=== PATIENT | female | born 1945 | race Caucasian/White ===

== ENCOUNTER 2017-12-18 12:14 | Emergency (ER) | payer MEDICARE, OTHER ==
[2017-12-18] MEDS ORDERED: TETRACAINE HCL 0.5% OPH SOLN 2 ML OS ONE (13:59)
--- NOTE | 2017-12-18 14:53 | ER Document Report ---
ED Medical Screen (RME) - General Chief Complaint: Eye Problem Stated Complaint: LEFT EYE PAIN Time Seen by Provider: 12/18/17 13:59 TRAVEL OUTSIDE OF THE [place] IN LAST 30 DAYS: No - HPI Patient complains to provider of: Subconjunctival hemorrhage Onset: Just prior to arrival - 72-year-old female with past medical history significant for subconjunctival hemorrhage in the left eye previously who presents for evaluation of redness in the left eye which she woke up with this morning. She notes that it is painless, there was no trauma to the eye, she previously was taking Plavix but due to recurrent nosebleeds has been transitioned to aspirin. Nothing seems to make it any better. - Related Data Allergies/Adverse Reactions: fentanyl Allergy (Verified 12/18/17 18:11) Past Medical History - General Information source: Patient - Social History Chew tobacco use (# tins/day): No Frequency of alcohol use: None Drug Abuse: None - Past Medical History Cardiac Medical History: Reports: Hx Hypercholesterolemia, Hx Hypertension Renal/ Medical History: Denies: Hx Peritoneal Dialysis Past Surgical History: Reports: Hx Hysterectomy, Hx Orthopedic Surgery - rt shoulder rotator, neck surg, Hx Tonsillectomy Review of Systems - Review of Systems -: Yes All other systems reviewed and negative Physical Exam - Vital signs Vitals: Temp Pulse Resp BP Pulse Ox 97.5 F 51 L 16 165/70 H 99 12/18/17 12:25 12/18/17 12:25 12/18/17 12:25 12/18/17 12:25 12/18/17 12:25 - General General appearance: Appears well In distress: None - HEENT Head: Normocephalic Eyes: Other - Obvious subconjunctival hemorrhage in the left eye Conjunctiva: Other - Obvious subconjunctival hemorrhage to the left eye Cornea: Normal Extraocular movements intact: Yes Eyelashes: Normal Pupils: PERRL Corrective lenses worn: Yes Lids everted for exam: left: Normal Anterior chamber: Normal Fundascopic: Normal Nerve palsy: No Visual lainez normal: Yes Ears: Normal External canal: Normal Tympanic membrane: Normal Pharynx: Normal Neck: Normal - Respiratory Respiratory status: No respiratory distress Chest status: Nontender Breath sounds: Normal Chest palpation: Normal - Cardiovascular Rhythm: Regular Heart sounds: Normal auscultation Murmur: No - Abdominal Inspection: Normal Distension: No distension Tenderness: Nontender - Back Back: Normal - Extremities General upper extremity: Normal inspection, Normal ROM General lower extremity: Normal inspection, Normal ROM Course - Re-evaluation Re-evalutation: 12/18/17 21:13 This 72-year-old female presents for painless redness in the left eye which she woke up with this morning. She has had an episode in the past like this well over a month prior for which she was evaluated by her eye doctor he says nothing to worry about. Examination there is an obvious left-sided subconjunctival hemorrhage. The patient's visual acuity is spared. On slit-lamp examination there is no obvious abrasions no obvious flare and cell in the anterior chambers of either eye, funduscopic examination demonstrates no obvious retinal hemorrhage or detachment in the posterior chamber. Given the patient's well appearance otherwise we will plan for discharge with encouraged follow-up with the powerplant operator for management of her subconjunctival hemorrhage. We will continue to take aspirin as previously directed. - Vital Signs Vital signs: Temp Pulse Resp BP Pulse Ox 97.5 F 51 L 16 147/64 H 97 12/18/17 12:25 12/18/17 15:00 12/18/17 15:00 12/18/17 15:00 12/18/17 15:00 Doctor's Discharge - Discharge Clinical Impression: Subconjunctival bleed Qualifiers: Laterality: left Qualified Code(s): H11.32 - Conjunctival hemorrhage, left eye Condition: Good Disposition: HOME, SELF-CARE Instructions: Subconjunctival Hemorrhage ([facility]) Referrals: DONNA CALLAHAN NP-C [Primary Care Provider] - Follow up as needed
[2017-12-18 18:09] VITALS: BP 147/64
== END 2017-12-18 15:15 | disposition home or self-care (01) ==
LOC: ER 12:14
DX: H11.32 Conjunctival hemorrhage, left eye (principal); I10 Essential (primary) hypertension; Z79.82 Long term (current) use of aspirin; Z88.5 Allergy status to narcotic agent
CPT/HCPCS: 99283

== ENCOUNTER → 2018-06-06 | Outpatient (CLI) | payer MEDICARE, OTHER ==
--- NOTE | 2018-06-06 13:08 | WOMENS IMAGING REPORT ---
EXAM DESCRIPTION: 3D SCREENING MAMMO BILAT COMPLETED DATE/TIME: 06/06/2018 10:28 am REASON FOR STUDY: ROUTINE BILATERAL SCREENING;Z12.31 Z12.31 ENCNTR SCREEN MAMMOGRAM FOR MALIGNANT N EOPLASM OF ALEJANDRA COMPARISON: 07/05/2016 TECHNIQUE: Standard craniocaudal and mediolateral oblique views of each breast recorded using digita l acquisition and breast tomosynthesis. LIMITATIONS: None. FINDINGS: No masses, calcifications or architectural distortion. No areas of suspicion. Read with the assistance of CAD. .[facility] - R2 Cenova Version 1.3 .[facility] - R2 Cenova Version 2.1 .[facility] - R2 Cenova Version 2.4 .[facility] [place] R2 Cenova Version 2.4 .[facility] - R2 Sawmill Hand Version 9.2 IMPRESSION: NORMAL MAMMOGRAM. BIRADS 1. BREAST DENSITY: b. There are scattered areas of fibroglandular density. BIRAD: 1 NEGATIVE RECOMMENDATION: ROUTINE SCREENING COMMENT: The patient has been notified of the results by letter per SA requirements. Additional no tification policies are in place for contacting patient with suspicious or incomplete findings. Quality ID #[id number]: The [employer] recommends an annual screening mammogram for women aged 40 years or over. This facility utilizes a reminder system to ensure that all patients receive reminder letters, and/or direct phone calls for appointments. This includes reminders for routine scr eening mammograms, diagnostic mammograms, or other Breast Imaging Interventions when appropriate. Th is patient will be placed in the appropriate reminder system. The [employer] (ACR) has developed recommendations for screening MRI of the breast s in certain patient populations, to be used in conjunction with mammography. Breast MRI surveillanc e may be appropriate for women with more than 20% lifetime risk of developing breast cancer as deter mined by genetic testing, significant family history of the disease, or history of mantle radiation f or Hodgkins Disease. ACR Practice Guidelines 2008. DBT Technology DBT is a type of tomographic mammography. With conventional mammography, overlapping breast tissue ma y make lesions difficult to detect, even with good compression. DBT uses an x-ray tube that rotates a round the breast, taking images at different angles. These images are then combined to create thin sl ices of the breast that the radiologist can view as a 3D reconstruction. The [employer] unit can perform full-field digital mammograms (2D imaging); or DBT (3D imaging); or both, in a combination mode that quickly performs both the mammogram and the tomosynthesis scan while the breast is still compressed. PQRS 6045F: Fluoroscopic imaging is not utilized for breast tomosynthesis. TECHNICAL DOCUMENTATION: FINDING NUMBER: (1) ASSESSMENT: (1) JOB ID: [id number] [place]- All Rights Reserved Reading location - IP/workstation name: [email or web address]
== END ==
LOC: WI 10:00
PROVIDERS: ATTEND Internal Medicine Geriatric Medicine
DX: Z12.31 Encounter for screening mammogram for malignant neoplasm of breast (principal)
CPT/HCPCS: 77063; 77067

== ENCOUNTER 2019-12-28 18:20 | Emergency (ER) | payer MEDICARE, OTHER ==
--- NOTE | 2019-12-28 19:50 | ER Document Report ---
ED Medical Screen (RME) - General Chief Complaint: Cough Stated Complaint: NAUSEA/WEAKNESS/COUGHING UP WORMS Time Seen by Provider: 12/28/19 19:46 Primary Care Provider: RENÉ AZAR MD [Primary Care Provider] - Follow up as needed Mode of Arrival: Ambulatory Information source: Patient Notes: 74-year-old female presented to ED for complaint of shortness of breath. She states she has parasites coming out of her nose or mouth or rectum. She states she has been very short of breath because of these parasites. She states she did have a fever a couple weeks ago but now she does not have fever. She states she has been to multiple doctors in the area and nobody knows what she is talking about. She has samples of her "parasites on a plate on an apple and in a another dish. She states she also has pictures of these parasites. I do not see any obvious parasites in any of these areas. She states she thinks is either ringworm hookworm or roundworm. None of the sample she showed me look like any of the above. Patient is very aggravated that I do not know what these bugs are. I told her that I would get her seen by another provider. I have greeted and performed a rapid initial assessment of this patient. A comprehensive ED assessment and evaluation of the patient, analysis of test results and completion of medical decision making process will be conducted by an additional ED providers. TRAVEL OUTSIDE OF THE [place] IN LAST 30 DAYS: No - Related Data Allergies/Adverse Reactions: fentanyl Allergy (Verified 12/18/17 18:11) Past Medical History - Past Medical History Cardiac Medical History: Reports: Hx Hypercholesterolemia, Hx Hypertension Renal/ Medical History: Denies: Hx Peritoneal Dialysis Past Surgical History: Reports: Hx Hysterectomy, Hx Orthopedic Surgery - rt shoulder rotator, neck surg, Hx Tonsillectomy Doctor's Discharge - Discharge Referrals: RENÉ AZAR MD [Primary Care Provider] - Follow up as needed
[2019-12-28 20:48] LABS: ABSOLUTE BASOPHILS # (AUTO) 0.1 10^3/uL (0.0-0.2); ABSOLUTE EOSINOPHILS # (AUTO) 0.2 10^3/uL (0.0-0.6); ABSOLUTE LYMPHOCYTES (AUTO) 3.8 10^3/uL (0.5-4.7); ABSOLUTE MONOCYTES (AUTO) 0.9 10^3/uL (0.1-1.4); ABSOLUTE NEUT (AUTO) 6.6 10^3/uL (1.7-8.2); BASOPHILS % (AUTO) 0.7 % (0-2); EOSINOPHILS % (AUTO) 1.5 % (0-6); HEMATOCRIT 39.8 % (36.0-47.0); HEMOGLOBIN 13.1 g/dL (12.0-15.5); LYMPHOCYTES % (AUTO) 32.6 % (13-45); MEAN CORPUSCULAR HEMOGLOBIN 29.3 pg (27.0-33.4); MEAN CORPUSCULAR HGB CONC 32.8 g/dL (32.0-36.0); MEAN CORPUSCULAR VOLUME 89 fl (80-97); MONOCYTES % (AUTO) 7.9 % (3-13); PLATELET COUNT 175 10^3/uL (150-450); RED BLOOD COUNT 4.46 10^6/uL (3.72-5.28); RED CELL DISTRIBUTION WIDTH 16.1 % (11.5-14.0); SEGMENTED NEUTROPHILS % (AUTO) 57.3 % (42-78); TOTAL CELLS COUNTED % (AUTO) 100 %; WHITE BLOOD COUNT 11.6 10^3/uL (4.0-10.5)
[2019-12-28 20:55] LABS: APPEARANCE,URINE CLEAR; BILIRUBIN,URINE NEGATIVE (NEGATIVE); COLOR,URINE STRAW; GLUCOSE, URINE NEGATIVE (NEGATIVE); KETONES,URINE NEGATIVE (NEGATIVE); LEUKOCYTE ESTERASE,URINE TRACE (NEGATIVE); NITRITE,URINE NEGATIVE (NEGATIVE); PROTEIN,URINE NEGATIVE (NEGATIVE); URINE SPECIFIC GRAVITY 1.005; UROBILINOGEN,URINE NEGATIVE mg/dL (<2.0)
[2019-12-28 21:07] LABS: ALBUMIN 3.9 g/dL (3.5-5.0); ALKALINE PHOSPHATASE 65 U/L (38-126); ANION GAP 7 (5-19); ASPARTATE AMINO TRANSFERASE 33 U/L (14-36); BILIRUBIN,DIRECT 0.3 mg/dL (0.0-0.4); BILIRUBIN,TOTAL 0.5 mg/dL (0.2-1.3); BLOOD UREA NITROGEN 26 mg/dL (7-20); CALCIUM 9.3 mg/dL (8.4-10.2); CARBON DIOXIDE 30 mmol/L (22-30); CHLORIDE 104 mmol/L (98-107); GLUCOSE 92 mg/dL (75-110); POTASSIUM 4.1 mmol/L (3.6-5.0); TOTAL PROTEIN 6.4 g/dL (6.3-8.2)
--- NOTE | 2019-12-28 23:41 | ER Document Report ---
ED General - General Chief Complaint: Shortness Of Breath Stated Complaint: NAUSEA/WEAKNESS/COUGHING UP WORMS Time Seen by Provider: 12/28/19 19:46 Primary Care Provider: RENÉ AZAR MD [Primary Care Provider] - Follow up as needed Mode of Arrival: Ambulatory TRAVEL OUTSIDE OF THE [place] IN LAST 30 DAYS: No - HPI Context: This is a 74-year-old female who is presenting to the emergency department complaining of shortness of breath and generalized weakness. Patient states that she has parasites coming out of her nose mouth and rectum. She states that she is short of breath and weak because of these parasites. Patient states she had a fever couple weeks ago which has since abated. Currently she is being seen by other providers and has had stool test sent off for evaluation of parasites. Patient denies any recent travel. Patient denies cough, myalgias, loss of sense of taste or sense of smell. Patient states she is also noticed swelling in her lower extremities bilaterally during the day that improves overnight. Patient is showing this provider pictures of her stool and sputum as well as a half an apple and she brought in with her that she is stating has evidence of parasites in it. Patient does not know how she might of been exposed to this pathology. Patient states she was expecting a call from 1 of her providers today about the results of some testing but never received a call. Patient states "at this point I just want to know what they are and I want to get them out of me" Associated symptoms: Other - See HPI Exacerbated by: Other - Nothing Relieved by: Other - Nothing Similar symptoms previously: No Recently seen / treated by doctor: Yes - Related Data Allergies/Adverse Reactions: fentanyl Allergy (Verified 12/18/17 18:11) Past Medical History - General Information source: Patient - Social History Smoking Status: Never Smoker Chew tobacco use (# tins/day): No Frequency of alcohol use: None Drug Abuse: None Family History: Reviewed & Not Pertinent - Past Medical History Cardiac Medical History: Reports: Hx Hypercholesterolemia, Hx Hypertension Renal/ Medical History: Denies: Hx Peritoneal Dialysis Past Surgical History: Reports: Hx Hysterectomy, Hx Orthopedic Surgery - rt shoulder rotator, neck surg, Hx Tonsillectomy Review of Systems - Review of Systems Constitutional: Weakness EENT: See HPI Cardiovascular: denies: Chest pain Respiratory: Short of breath Gastrointestinal: No symptoms reported Genitourinary: No symptoms reported Female Genitourinary: No symptoms reported Musculoskeletal: No symptoms reported Skin: No symptoms reported Hematologic/Lymphatic: No symptoms reported Neurological/Psychological: No symptoms reported -: Yes All other systems reviewed and negative Physical Exam - Vital signs Vitals: Temp Pulse Resp BP Pulse Ox 98.4 F 97 18 119/85 99 12/28/19 20:08 12/28/19 20:08 12/28/19 20:08 12/28/19 20:08 12/28/19 20:08 - Notes Notes: CONSTITUTIONAL [Vital signs reviewed, Patient appears comfortable, Alert and oriented X 3, Normal stature.] HEAD [Atraumatic, Normocephalic.] EYES [Eyes are normal to inspection, No discharge from eyes, Extraocular muscles intact, Sclera are normal, Conjunctiva are normal.] ENT [Ears normal to inspection, Nose examination normal, Posterior pharynx normal, Mouth normal to inspection.] NECK [Normal ROM, No jugular venous distention, No meningeal signs, no carotid bruit.] RESPIRATORY CHEST [Chest is nontender, Breath sounds normal, No respiratory distress.] CARDIOVASCULAR [RRR, No murmurs, Normal S1 S2, No rub, No gallop.] ABDOMEN [Abdomen is nontender, No pulsatile masses, No other masses, Bowel sounds normal, No distension, No peritoneal signs, No hernias.] BACK [There is no CVA Tenderness, There is no tenderness to palpation, Normal inspection.] UPPER EXTREMITY [Inspection normal, No cyanosis, No clubbing, No edema, 2+ radial pulses.] LOWER EXTREMITY [Inspection normal, No cyanosis, No clubbing, No edema, No calf tenderness, 2+ femoral pulses.] NEURO [No focal motor deficits, No focal sensory deficits, Speech normal.] SKIN [Skin is warm, Skin is dry, Skin is normal color.] LYMPHATIC [No adenopathy in neck.] PSYCHIATRIC [Normal affect. ] Course - Re-evaluation Re-evalutation: 12/29/19 01:28 Results of ED MSE discussed with all questions were answered prior to discharge. Emergency signs and symptoms, reasons to return to the emergency department discussed with patient. - Vital Signs Vital signs: Temp Pulse Resp BP Pulse Ox 98.4 F 97 18 119/85 99 12/28/19 20:11 12/28/19 20:11 12/28/19 20:11 12/28/19 20:11 12/28/19 20:11 - Laboratory Result Diagrams: 12/28/19 20:35 12/28/19 20:35 Laboratory results interpreted by me: 12/28/19 12/28/19 12/28/19 20:35 20:35 20:35 WBC 11.6 H RDW 16.1 H BUN 26 H Est GFR (MDRD) Non-Af 50 L ALT 48 H Urine Blood MODERATE H Ur Leukocyte Esterase TRACE H - Diagnostic Test Radiology reviewed: Reports reviewed Discharge - Discharge Clinical Impression: Malaise and fatigue Dyspnea Qualifiers: Dyspnea type: unspecified Qualified Code(s): R06.00 - Dyspnea, unspecified Condition: Stable Disposition: HOME, SELF-CARE Additional Instructions: Return to the Emergency Department without delay if any worse. HOME CARE INSTRUCTIONS & INFORMATION: Thank you for choosing us for your medical needs. We hope you're satisfied with the care you received. After you leave, you must properly care for your problem and, at the same time, observe its progress. Any condition can change. Some illnesses can change rapidly over hours or days. If your condition worsens, return to the Emergency Department or see your physician promptly. ABOUT YOUR X-RAYS AND EKG'S: If you had an EKG or X-rays taken, they have been read by the Emergency Physician. The X-rays and EKG's will also be read by a Radiologist or Viscose Department Worker within 24 hours. If discrepancies are noted, you will be notified by telephone. Please be certain the ED has a correct telephone number & address where you can be reached. Also, realize that some fractures or abnormalities do not show up on initial X-rays. If your symptoms continue, see your physician. ABOUT YOUR LABORATORY TEST: If you had laboratory tests, the results have been reviewed by the Emergency Physician. Some test results (for example cultures) may not be available for several days. You will be contacted if any test result shows you need additional treatment. Please be certain the ED has a correct telephone number and address where you can be reached. ABOUT YOUR MEDICATIONS: You will receive instructions on how to take your medicine on the prescription label you receive. Additional information may be provided by the Pharmacy. If you have questions afterwards, call the ED for clarification or further instructions. Some prescribed medications may cause drowsiness. Do not perform tasks such as driving a car or operating machinery without consulting your Pharmacist. If you feel you need a refill of pain medication, your condition will need re-evaluation. Please do not call for a refill of any medication. ABOUT YOUR SIGNATURE: Signature of this document acknowledges to followin. Understanding that you received emergency treatment and that you may be released before al medical problems are known or treated. Please be certain the ED has a correct phone number & address where you can be reached. 2. Acknowledgement that you will arrange for follow-up care as recommended. 3. Authorization for the Emergency Physician to provide information to your follow-up Physician in order to maximize your care. AT ANY TIME, IF YOUR SYMPTOMS CHANGE SIGNIFICANTLY OR WORSEN OR YOU DEVELOP NEW SYMPTOMS, RETURN TO THE EMERGENCY DEPARTMENT IMMEDIATELY FOR RE-EVALUATION. OUR GOAL IS TO PROVIDE EXCELLENT MEDICAL CARE! WE HOPE THAT WE HAVE MET YOUR EXPECTATIONS DURING YOUR EMERGENCY DEPARTMENT VISIT AND THAT YOU FEEL YOU HAVE RECEIVED EXCELLENT CARE! Referrals: RENÉ AZAR MD [Primary Care Provider] - Follow up as needed
--- NOTE | 2019-12-29 00:23 | RADIOLOGY REPORT (SQ) ---
EXAM DESCRIPTION: XR CHEST 1 VIEW COMPLETED DATE/TME: 12/28/2019 23:28 CLINICAL HISTORY: dyspnea COMPARISON: None. FINDINGS: Single frontal radiograph view of the chest. Cardiomediastinal silhouette: Cardiomegaly. Lungs: No consolidation, pneumothorax, or pleural effusion. Hyperinflation. Bones: No acute osseous abnormality. Partial visualization of anterior cervical spine fixation. Postoperative change of the right humeral head. Upper abdomen: No abnormality identified. IMPRESSION: 1. No acute pneumonic process. 2. Cardiomegaly. 3. Hyperinflation may indicate obstructive lung disease.
[2019-12-29 01:43] VITALS: BP 137/77
[2019-12-29 14:54] LABS: BLOOD PARASITE THICK SMEAR NO ORGANISMS SEEN
[2020-01-01 15:30] LABS: BLOOD PARASITE SCREEN RESULT NO ORGANISMS SEEN
[2020-01-01 15:33] LABS: PATH REVIEW PATHOLOGIST REVIEWED
== END 2019-12-29 01:42 | disposition home or self-care (01) ==
LOC: ER 18:20
DX: R06.02 Shortness of breath (principal); R53.1 Weakness; R53.83 Other fatigue; R53.81 Other malaise; I11.9 Hypertensive heart disease without heart failure; Z88.6 Allergy status to analgesic agent; Z88.5 Allergy status to narcotic agent
CPT/HCPCS: 36415; 71045; 80053; 81001; 85025; 87015; 87207; 99284

== ENCOUNTER 2019-12-29 08:42 | Inpatient (IN) | payer MEDICARE, OTHER ==
--- NOTE | 2019-12-29 10:42 | ER Document Report ---
ED General - General Chief Complaint: Abdominal Problem Stated Complaint: BREATHING PROBLEM Time Seen by Provider: 12/29/19 10:14 Primary Care Provider: RENÉ AZAR MD [Primary Care Provider] - Follow up as needed TRAVEL OUTSIDE OF THE [place] IN LAST 30 DAYS: No - HPI Notes: Chief complaint: "I have worms" History of present illness: 74-year-old female reports seeing worms in her stool starting on 07 December. Since then she has had generalized malaise, fatigue and about an 8 pound weight loss. She says also she has been intermittently short of breath and has seen worms crawling out of her nose. Patient previously has been under the care of Dr. Fuentes for hypertension. She is otherwise been in good general health. She states she tried to make a appointment with Dr. Mg unsuccessfully and subsequently decided to switch over to Dr. Azar. She has been seen twice in the office there by 1 of the physicians assistants and they told her that they could not find anything. Patient subsequently spoke with her pharmacist about the issue and was told she should come to the emergency department. She came in was seen last night by Dr. Callum Goldberg. I have reviewed his note. He apparently sent a specimen of blood for evaluation of parasites and the report at this time indicates this remains on pending status so I presume this is a send out test. Patient says she was not given any medication last night and she appears to be disappointed in the evaluation and therefore came back in today. She says she is been intermittently short of breath. Patient denies any travel outside the area. She does not consume raw or rare meats. She says she has 2 dogs as pets. She occasionally walks outside barefooted in her yard. Patient is a former smoker having quit cigarettes over 5 years ago. She denies consumption of alcohol. She reports an allergy to fentanyl. She is taking medication for hypertension. She says she is on 2 different medications. She did not bring either with her and does not know milligrams strengths. 1 of the medications is Bystolic and she cannot recall the name of the other medication. She denies taking any other type of medication. W she specifically denies any known history of Diabetes mellitus. - Related Data Allergies/Adverse Reactions: fentanyl Allergy (Verified 12/18/17 18:11) Past Medical History - General Information source: Patient, [facility] Records - Social History Smoking Status: Former Smoker Chew tobacco use (# tins/day): No Frequency of alcohol use: None Drug Abuse: None Family History: Reviewed & Not Pertinent Patient has homicidal ideation: No - Past Medical History Cardiac Medical History: Reports: Hx Hypercholesterolemia, Hx Hypertension Denies: Hx Atrial Fibrillation Endocrine Medical History: Denies: Hx Diabetes Mellitus Type 1, Hx Diabetes Aline litus Type 2, Hx Hyperthyroidism, Hx Hypothyroidism Renal/ Medical History: Denies: Hx Peritoneal Dialysis Musculoskeletal Medical History: Reports Hx Fibromyalgia Psychiatric Medical History: Reports: None Past Surgical History: Reports: Hx Hysterectomy, Hx Orthopedic Surgery - rt shoulder rotator, neck surg, Hx Tonsillectomy Review of Systems - Review of Systems Notes: Constitutional: As per HPI. No fever.. HENT: Negative for sore throat. Eyes: Negative for visual changes. Cardiovascular: Negative for chest pain. Respiratory: As per HPI. Gastrointestinal: As per HPI . Genitourinary: Negative for dysuria. Musculoskeletal: Negative for back pain. Skin: Negative for rash. Neurological: Negative for headaches, focal weakness or numbness. 10 point ROS negative except as marked above and in HPI. Physical Exam - Vital signs Vitals: Temp 98.6 F 12/29/19 08:42 - Notes Notes: GENERAL: Slender female patient of approximately stated age appearing with flat affect and appearing mildly anxious. SKIN: Good turgor no rashes. HEAD: Normocephalic atraumatic. EYES: PERRLA. EOMI. Conjunctivae and sclerae clear. EARS: CANALS AND TMS CLEAR. NOSE: CLEAR. MOUTH: Moist mucosa. Good dentition. No stridor or edema. No drooling. NECK: Supple. No masses or thyromegaly. No adenopathy. Carotids 2+ without bruits. No JVD. BACK: Symmetrical without tenderness. CHEST: Respirations unlabored. Breath sounds clear and symmetrical. HEART: Tachycardic irregularly irregular rhythm. No murmur gallop or rub. ABDOMEN: Soft nontender without masses, organomegaly or rebound. Bowel sounds normally active. No bruits. GENITALIA: Deferred. EXTREMITIES: Moderate degenerative changes intra-phalangeal joints of both hands. No edema. No calf tenderness. Cap refill less than 1.5 seconds. Dorsa lis pedis and posterior tibial pulses 3+ and symmetrical. NEUROLOGICAL: GCS 15. Alert and oriented x3. Normal gait. Fluent speech. Cranial nerves II through XII intact. Sensorimotor and cerebellar normal. Normal tone. PSYCHIATRIC: Appropriate affect. Course - Re-evaluation Re-evalutation: 12/29/19 12:39 Patient presented with new onset atrial fibrillation with rapid ventricular response. This was controlled with IV bolus and drip infusion diltiazem. She is in persistent atrial fib but her rate is now down to 77. She has no chest pain. Troponin is normal. Chemistry profile and CBC are unremarkable. Findings have been reviewed with her primary care physician Dr. Azar who will admit to [facility]. - Vital Signs Vital signs: Temp Pulse Resp BP Pulse Ox 97.7 F 117 H 12 117/98 H 97 12/29/19 09:02 12/29/19 09:02 12/29/19 12:04 12/29/19 12:04 12/29/19 12:04 - Laboratory Result Diagrams: 12/29/19 11:30 12/29/19 11:30 Laboratory results interpreted by me: 12/29/19 12/29/19 11:30 11:30 RDW 16.1 H BUN 22 H Est GFR (MDRD) Non-Af 56 L Magnesium 2.4 H ALT 49 H Total Protein 6.1 L - EKG Interpretation by Me Additional EKG results interpreted by me: 12/29/19 10:47 Twelve-lead EKG from 1041 hrs. reviewed contemporaneously by me. Rhythm: Atrial fibrillation Rate: 130 Intervals normal. QRS axis +22 degrees normal. No acute ST/T wave changes. No prior EKG for comparison. Indication for study: Tachycardia. Interpretation: Abnormal tracing showing atrial fibrillation with rapid ventricular response. Critical Care Note - Critical Care Note Total time excluding time spent on procedures (mins): 35 - Atrial fibrillation with rapid ventricular response. Diltiazem IV bolus and drip initiated. Discharge - Discharge Clinical Impression: New onset atrial fibrillation Condition: Good Disposition: ADMITTED INPATIENT Unit Admitted: [facility] Referrals: RENÉ AZAR MD [Primary Care Provider] - Follow up as needed
[2019-12-29] MEDS ORDERED: DILTIAZEM HCL INJ 25 MG/5 ML VIAL IV ONE (10:48)
[2019-12-29] MEDS ORDERED: DILTIAZEM HCL/D5W 125 MG/125 ML RTUINJ IV PRN (10:49)
[2019-12-29 11:44] LABS: ABSOLUTE EOSINOPHILS # (AUTO) 0.1 10^3/uL (0.0-0.6); ABSOLUTE LYMPHOCYTES (AUTO) 2.9 10^3/uL (0.5-4.7); ABSOLUTE MONOCYTES (AUTO) 0.7 10^3/uL (0.1-1.4); ABSOLUTE NEUT (AUTO) 4.2 10^3/uL (1.7-8.2); BASOPHILS % (AUTO) 0.4 % (0-2); EOSINOPHILS % (AUTO) 1.6 % (0-6); HEMATOCRIT 39.9 % (36.0-47.0); HEMOGLOBIN 13.1 g/dL (12.0-15.5); LYMPHOCYTES % (AUTO) 36.8 % (13-45); MEAN CORPUSCULAR HEMOGLOBIN 29.2 pg (27.0-33.4); MEAN CORPUSCULAR HGB CONC 32.9 g/dL (32.0-36.0); MEAN CORPUSCULAR VOLUME 89 fl (80-97); MONOCYTES % (AUTO) 8.6 % (3-13); PLATELET COUNT 166 10^3/uL (150-450); RED CELL DISTRIBUTION WIDTH 16.1 % (11.5-14.0); SEGMENTED NEUTROPHILS % (AUTO) 52.6 % (42-78); TOTAL CELLS COUNTED % (AUTO) 100 %
[2019-12-29 12:01] LABS: ALBUMIN 3.8 g/dL (3.5-5.0); ALKALINE PHOSPHATASE 59 U/L (38-126); ANION GAP 8 (5-19); ASPARTATE AMINO TRANSFERASE 34 U/L (14-36); BILIRUBIN,DIRECT 0.2 mg/dL (0.0-0.4); BILIRUBIN,TOTAL 0.9 mg/dL (0.2-1.3); BLOOD UREA NITROGEN 22 mg/dL (7-20); CALCIUM 8.9 mg/dL (8.4-10.2); CARBON DIOXIDE 28 mmol/L (22-30); CHLORIDE 103 mmol/L (98-107); GLUCOSE 83 mg/dL (75-110); POTASSIUM 3.8 mmol/L (3.6-5.0); TOTAL PROTEIN 6.1 g/dL (6.3-8.2)
[2019-12-29 12:03] LABS: INTERNATIONAL RATION (INR) 0.91; PROTHROMBIN TIME 12.5 SEC (11.4-15.4)
[2019-12-29 12:04] LABS: PARTIAL THROMBOPLASTIN TIME 28.9 SEC (23.5-35.8)
--- NOTE | 2019-12-29 13:23 | EKG REPORT ---
SEVERITY:- ABNORMAL ECG - ATRIAL FIBRILLATION, V-RATE 71-179 : Confirmed by: Ajay Pena MD 29-Dec-2019 13:23:05
[2019-12-29] MEDS: DILTIAZEM HCL/D5W 125 MG/125 ML RTUINJ IV PRN (18:40)
[2019-12-29] MEDS ORDERED: OXYCODONE HCL SR 10 MG TABLET PO PRN (18:40)
[2019-12-29 19:20] LABS: FREE T3 3.46 pg/mL (2.77-5.27); FREE T4 (FREE THYROXINE) 1.64 ng/dL (0.78-2.19)
[2019-12-29] MEDS: APIXABAN 5 MG TABLET PO SCH (20:26)
[2019-12-29] MEDS: NORMAL SALINE 1000 ML 1,000 ML IV PRN (20:27)
--- NOTE | 2019-12-29 21:43 | PDOC H&P ---
History of Present Illness Admission Date/PCP: 12/29/19 13:10 [facility] Patient complains of: Difficulty with breathing, Abdominal Pain History of Present Illness: SRAVAN CHONG is a 74 year old female patient known to my practice who presented to the ED second time in last 48 hours with complain about worm in her stool and coming out of her nose. She was seen in the office for similar complain recently and her workup is pending results from [facility] laboratory. She reported persist of her observation and based on the suggestion of her pharmacist reported to the ED for further evaluation. She denied any recent travel or intimate contact with individual that may be infested with worm. She admitted to keeping two dogs at home as pets, walk barefoot at home and in her yard. She denied consumption of unusual meat or food products. In the course of her assessment, she reported intermittent shortness of breath since onset of her worm infestation observation in November,. She was found to be in atrial fibrillation with rapid ventricular response rate. She denied any associated chest pain or dizziness. She admitted to intermittent palpitation. She denied any similar problem in the past or any history of thyroid problem. Her morbidities are as listed below. She was advised hospitalization for further evaluation and management. Past Medical History Cardiac Medical History: Reports: Hyperlipidema, Hypertension Denies: Atrial Fibrillation Endocrine Medical History: Denies: Diabetes Mellitus Type 1, Diabetes Mellitus Type 2, Hyperthyroidism, Hypothyroidism Musculoskeltal Medical History: Reports: Fibromyalgia Psychiatric Medical History: Reports: None Denies: Depression Past Surgical History Past Surgical History: Reports: Hysterectomy, Orthopedic Surgery - rt shoulder rotator, neck surg, Tonsillectomy Social History Smoking Status: Former Smoker Electronic Cigarette use?: No Frequency of Alcohol Use: None Hx Recreational Drug Use: No Drugs: None Hx Prescription Drug Abuse: No - Advance Directive Resuscitation Status: Full Code Family History Family History: Reviewed & Not Pertinent Parental Family History Reviewed: Yes Children Family History Reviewed: Yes Sibling(s) Family History Reviewed.: Yes Medication/Allergy Home Medications: Alprazolam 1 mg PO TIDP PRN 12/29/19 Levofloxacin [Levaquin 250 mg Tablet] 250 mg PO DAILY MDD FILLED 12/24 FOR 3 DAY SUPPLY 12/29/19 Montelukast Sodium [Singulair 10 mg Tablet] 10 mg PO QHS 12/29/19 Oxycodone HCl [Oxy-Ir 5 mg Tablet] 5 mg PO Q6HP PRN 12/29/19 Oxycodone HCl [Oxy-Ir 5 mg Tablet] 10 mg PO Q6HP PRN 12/29/19 Oxycodone HCl [Oxycontin Sr 10 mg Tablet] 10 mg PO Q12HP PRN 12/29/19 Prednisone [Deltasone 20 mg Tablet] 20 mg PO ASDIR PRN MDD FILLED 12/17 FOR 12 DAY SUPPLY 12/29/19 Allergies/Adverse Reactions: fentanyl Allergy (Verified 12/18/17 18:11) Review of Systems Constitutional: PRESENT: weight loss - reported about 8 lbs since November, onset of her worm infestation observation. ABSENT: chills, fever(s), headache(s), weight gain Eyes: ABSENT: visual disturbances Ears: ABSENT: hearing changes Cardiovascular: PRESENT: dyspnea on exertion - intermittent, palpitations - intermittent. ABSENT: chest pain, edema, orthropnea Respiratory: PRESENT: dyspnea - intermittent. ABSENT: cough, hemoptysis Gastrointestinal: ABSENT: abdominal pain, constipation, diarrhea, hematemesis, hematochezia, nausea, vomiting Genitourinary: ABSENT: dysuria, hematuria Musculoskeletal: ABSENT: joint swelling Integumentary: ABSENT: rash, wounds Neurological: ABSENT: abnormal gait, abnormal speech, confusion, dizziness, focal weakness, syncope Psychiatric: ABSENT: anxiety, depression, homidical ideation, suicidal ideation Endocrine: ABSENT: cold intolerance, heat intolerance, menstrual abnormalities, polydipsia, polyuria Hematologic/Lymphatic: ABSENT: easy bleeding, easy bruising, lymphadenopathy Physical Exam Vital Signs: Temp Pulse Resp BP Pulse Ox 97.5 F 97 16 126/87 H 95 12/29/19 15:38 12/29/19 18:00 12/29/19 15:38 12/29/19 18:00 12/29/19 15:38 Intake & Output 12/28/19 12/29/19 12/30/19 06:59 06:59 06:59 Weight 70 kg General appearance: PRESENT: no acute distress Head exam: PRESENT: atraumatic, normocephalic Eye exam: PRESENT: conjunctiva pink, EOMI, PERRLA. ABSENT: scleral icterus Ear exam: PRESENT: normal external ear exam Mouth exam: PRESENT: moist, tongue midline Neck exam: PRESENT: full ROM. ABSENT: carotid bruit, JVD, lymphadenopathy, thyromegaly Respiratory exam: PRESENT: clear to auscultation polo Cardiovascular exam: PRESENT: irregular rhythm, +S1, +S2, tachycardia. ABSENT: diastolic murmur, rubs, systolic murmur Pulses: PRESENT: normal dorsalis pedis pul, +2 pedal pulses bilateral Vascular exam: PRESENT: normal capillary refill GI/Abdominal exam: PRESENT: normal bowel sounds, soft. ABSENT: distended, guarding, mass, organolmegaly, rebound, tenderness Rectal exam: PRESENT: deferred Extremities exam: ABSENT: pedal edema Musculoskeletal exam: PRESENT: deformity - related to multiple joints involvement with arthritis Neurological exam: PRESENT: alert, awake, oriented to person, oriented to place, oriented to time, oriented to situation, CN II-XII grossly intact. ABSENT: motor sensory deficit Psychiatric exam: PRESENT: appropriate affect, normal mood. ABSENT: homicidal ideation, suicidal ideation Skin exam: PRESENT: dry, warm. ABSENT: cyanosis, rash Results Laboratory Results: 12/29/19 11:30 12/29/19 11:30 12/29/19 12/29/19 12/29/19 11:30 11:30 11:30 WBC 8.0 RBC 4.50 Hgb 13.1 Hct 39.9 MCV 89 MCH 29.2 MCHC 32.9 RDW 16.1 H Plt Count 166 Seg Neutrophils % 52.6 Sodium 139.0 Potassium 3.8 Chloride 103 Carbon Dioxide 28 Anion Gap 8 BUN 22 H Creatinine 0.97 Est GFR ( Amer) > 60 Glucose 83 Calcium 8.9 Magnesium 2.4 H Total Bilirubin 0.9 AST 34 Alkaline Phosphatase 59 Total Protein 6.1 L Albumin 3.8 TSH 0.28 L 12/29/19 12/29/19 11:30 11:30 Troponin I < 0.012 NT-Pro-B Natriuret Pep 2180 H Assessment & Plan - Diagnosis (1) New onset atrial fibrillation Is this a current diagnosis for this admission?: Yes Plan: See admitting attending physician orders for details about care plan. (2) Worm infestation Is this a current diagnosis for this admission?: Yes Plan: See admitting attending physician orders for details about care plan. (3) HTN (hypertension) Qualifiers: Hypertension type: essential hypertension Qualified Code(s): I10 - Essential (primary) hypertension Is this a current diagnosis for this admission?: Yes Plan: See admitting attending physician orders for details about care plan. (4) HLD (hyperlipidemia) Qualifiers: Hyperlipidemia type: unspecified Qualified Code(s): E78.5 - Hyperlipidemia, unspecified Is this a current diagnosis for this admission?: Yes Plan: See admitting attending physician orders for details about care plan. (5) Fibromyalgia Is this a current diagnosis for this admission?: Yes Plan: See admitting attending physician orders for details about care plan. (6) Anxiety Is this a current diagnosis for this admission?: Yes Plan: See admitting attending physician orders for details about care plan. (7) Chronic pain syndrome Is this a current diagnosis for this admission?: Yes Plan: See admitting attending physician orders for details about care plan. (8) Chronic prescription opiate use Is this a current diagnosis for this admission?: Yes Plan: See admitting attending physician orders for details about care plan. - Time Time Spent: 50 to 70 Minutes Medications reviewed and adjusted accordingly: Yes Anticipated Discharge Disposition: Home, Self Care Anticipated Discharge Timeframe: within 72 hours - Inpatient Certification Based on my medical assessment, after consideration of the patient's comorbi dities, presenting symptoms, or acuity I expect that the services needed warrant INPATIENT care.: Yes I certify that my determination is in accordance with my understanding of Medicare's requirements for reasonable and necessary INPATIENT services [42 CFR 412.3e].: Yes Medical Necessity: Significant Comorbidiites Make Outpatient Treatment Too Risky, Need Close Monitoring Due to Risk of Patient Decompensation, Need For IV Fluids, Need For Continuous Telemetry Monitoring, Risk of Complication if Not Cared For in Hospital, Risk of Diagnosis Which Will Require Inpatient Eval/Care/Monitoring Post Hospital Care: D/C [employer] Documentation - Plan Summary Plan Summary: See admitting attending physician orders for details about care plan.
[2019-12-29] MEDS: DOCUSATE SODIUM 100 MG CAPSULE PO SCH (22:41)
[2019-12-29] MEDS: ALPRAZOLAM 0.5 MG TABLET PO PRN (22:41)
[2019-12-30] MEDS: PANTOPRAZOLE SODIUM 40 MG TABLET.DR PO SCH (05:14)
[2019-12-30 05:36] LABS: ABSOLUTE EOSINOPHILS # (AUTO) 0.2 10^3/uL (0.0-0.6); ABSOLUTE LYMPHOCYTES (AUTO) 2.3 10^3/uL (0.5-4.7); ABSOLUTE MONOCYTES (AUTO) 0.6 10^3/uL (0.1-1.4); ABSOLUTE NEUT (AUTO) 3.8 10^3/uL (1.7-8.2); BASOPHILS % (AUTO) 0.4 % (0-2); EOSINOPHILS % (AUTO) 3.1 % (0-6); HEMATOCRIT 35.7 % (36.0-47.0); LYMPHOCYTES % (AUTO) 33.2 % (13-45); MEAN CORPUSCULAR HEMOGLOBIN 29.7 pg (27.0-33.4); MEAN CORPUSCULAR HGB CONC 33.7 g/dL (32.0-36.0); MEAN CORPUSCULAR VOLUME 88 fl (80-97); MONOCYTES % (AUTO) 8.4 % (3-13); PLATELET COUNT 141 10^3/uL (150-450); RED BLOOD COUNT 4.06 10^6/uL (3.72-5.28); RED CELL DISTRIBUTION WIDTH 15.8 % (11.5-14.0); SEGMENTED NEUTROPHILS % (AUTO) 54.9 % (42-78); TOTAL CELLS COUNTED % (AUTO) 100 %; WHITE BLOOD COUNT 6.9 10^3/uL (4.0-10.5)
[2019-12-30 06:17] LABS: ALBUMIN 3.4 g/dL (3.5-5.0); ALKALINE PHOSPHATASE 51 U/L (38-126); ANION GAP 7 (5-19); ASPARTATE AMINO TRANSFERASE 25 U/L (14-36); BILIRUBIN,DIRECT 0.3 mg/dL (0.0-0.4); BILIRUBIN,TOTAL 0.7 mg/dL (0.2-1.3); BLOOD UREA NITROGEN 15 mg/dL (7-20); CALCIUM 8.4 mg/dL (8.4-10.2); CARBON DIOXIDE 30 mmol/L (22-30); CHLORIDE 106 mmol/L (98-107); GLUCOSE 103 mg/dL (75-110); POTASSIUM 3.8 mmol/L (3.6-5.0); TOTAL PROTEIN 5.8 g/dL (6.3-8.2)
[2019-12-30] MEDS: DILTIAZEM HCL/D5W 125 MG/125 ML RTUINJ IV PRN (06:55)
[2019-12-30] MEDS: OXYCODONE HCL IR 5 MG TABLET PO PRN ×2 (07:03→17:40)
[2019-12-30] MEDS: APIXABAN 5 MG TABLET PO SCH ×2 (09:19→17:33)
--- NOTE | 2019-12-30 10:35 | PDOC PROGRESS REPORT ---
Subjective Progress Note for:: 12/30/19 Subjective:: No chest pain or difficulty with breathing. Remain on IV Cardizem drip at 5mg / hour infusion rate. No abdominal pain, nausea, or vomiting. No fever or chills. No bowel movement since admission. Reason For Visit: NEW ONSET ATRIL FIBRILLATION WITH RVR Physical Exam Vital Signs: Temp Pulse Resp BP Pulse Ox 97.8 F 98 20 131/99 H 97 12/30/19 08:24 12/30/19 07:22 12/30/19 07:22 12/30/19 07:22 12/30/19 07:22 Intake & Output 12/29/19 12/30/19 12/31/19 06:59 06:59 06:59 Intake Total 61 Balance 61 Weight 78.5 kg General appearance: PRESENT: no acute distress Head exam: PRESENT: atraumatic, normocephalic Eye exam: PRESENT: conjunctiva pink. ABSENT: scleral icterus Ear exam: PRESENT: normal external ear exam Mouth exam: PRESENT: moist, tongue midline Neck exam: PRESENT: full ROM. ABSENT: carotid bruit, JVD, lymphadenopathy, thyromegaly Respiratory exam: PRESENT: clear to auscultation polo Cardiovascular exam: PRESENT: irregular rhythm, +S1, +S2. ABSENT: diastolic murmur, rubs, systolic murmur Vascular exam: ABSENT: pallor GI/Abdominal exam: PRESENT: normal bowel sounds, soft. ABSENT: distended, guarding, mass, organolmegaly, rebound, tenderness Extremities exam: ABSENT: pedal edema Neurological exam: PRESENT: alert, awake, oriented to person, oriented to place, oriented to time, oriented to situation, CN II-XII grossly intact. ABSENT: motor sensory deficit Psychiatric exam: PRESENT: appropriate affect, normal mood. ABSENT: homicidal ideation, suicidal ideation Skin exam: PRESENT: dry, warm. ABSENT: cyanosis, rash Results Laboratory Results: 12/30/19 05:10 12/30/19 05:10 12/29/19 12/29/19 12/29/19 11:30 11:30 11:30 WBC 8.0 RBC 4.50 Hgb 13.1 Hct 39.9 MCV 89 MCH 29.2 MCHC 32.9 RDW 16.1 H Plt Count 166 Seg Neutrophils % 52.6 Sodium 139.0 Potassium 3.8 Chloride 103 Carbon Dioxide 28 Anion Gap 8 BUN 22 H Creatinine 0.97 Est GFR ( Amer) > 60 Glucose 83 Calcium 8.9 Magnesium 2.4 H Total Bilirubin 0.9 AST 34 Alkaline Phosphatase 59 Total Protein 6.1 L Albumin 3.8 TSH 0.28 L Free T4 Free T3 pg/mL 12/29/19 12/30/19 12/30/19 11:30 05:10 05:10 WBC 6.9 RBC 4.06 Hgb 12.0 Hct 35.7 L MCV 88 MCH 29.7 MCHC 33.7 RDW 15.8 H Plt Count 141 L Seg Neutrophils % 54.9 Sodium 142.8 Potassium 3.8 Chloride 106 Carbon Dioxide 30 Anion Gap 7 BUN 15 Creatinine 0.86 Est GFR ( Amer) > 60 Glucose 103 Calcium 8.4 Magnesium Total Bilirubin 0.7 AST 25 Alkaline Phosphatase 51 Total Protein 5.8 L Albumin 3.4 L TSH Free T4 1.64 Free T3 pg/mL 3.46 12/29/19 12/29/19 11:30 11:30 Troponin I < 0.012 NT-Pro-B Natriuret Pep 2180 H Assessment & Plan - Diagnosis (1) New onset atrial fibrillation Is this a current diagnosis for this admission?: Yes (2) Worm infestation Is this a current diagnosis for this admission?: Yes (3) HTN (hypertension) Qualifiers: Hypertension type: essential hypertension Qualified Code(s): I10 - Essential (primary) hypertension Is this a current diagnosis for this admission?: Yes (4) HLD (hyperlipidemia) Qualifiers: Hyperlipidemia type: unspecified Qualified Code(s): E78.5 - Hyperlipidemia, unspecified Is this a current diagnosis for this admission?: Yes (5) Fibromyalgia Is this a current diagnosis for this admission?: Yes (6) Anxiety Is this a current diagnosis for this admission?: Yes (7) Chronic pain syndrome Is this a current diagnosis for this admission?: Yes (8) Chronic prescription opiate use Is this a current diagnosis for this admission?: Yes - Time Time Spent with patient: 25-34 minutes Level of Care: IMCU Medications reviewed and adjusted accordingly: Yes Anticipated discharge: Home Anticipated DC Timeframe: within 72 hours - Inpatient Certification Based on my medical assessment, after consideration of the patient's comorbidities, presenting symptoms, or acuity I expect that the services needed warrant INPATIENT care.: Yes I certify that my determination is in accordance with my understanding of Medicare's requirements for reasonable and necessary INPATIENT services [42 CFR 412.3e].: Yes Medical Necessity: Significant Comorbidiites Make Outpatient Treatment Too Risky, Need Close Monitoring Due to Risk of Patient Decompensation, Need For IV Fluids, Need For Continuous Telemetry Monitoring, Risk of Complication if Not Ca red For in Hospital, Risk of Diagnosis Which Will Require Inpatient Eval/Care/Monitoring Post Hospital Care: D/C Naturopathic Physician Documentation - Plan Summary Plan Summary: Transition to oral Cardizem therapy. Follow up on pending stool evaluation. Maintain on all other current medication management.
[2019-12-30] MEDS: DILTIAZEM HCL 30 MG TABLET PO SCH ×3 (11:03→23:15)
[2019-12-30] MEDS: NORMAL SALINE 1000 ML 1,000 ML IV PRN (17:42)
[2019-12-30] MEDS: DOCUSATE SODIUM 100 MG CAPSULE PO SCH (21:18)
[2019-12-30] MEDS: ALPRAZOLAM 0.5 MG TABLET PO PRN (23:15)
[2019-12-31] MEDS: PANTOPRAZOLE SODIUM 40 MG TABLET.DR PO SCH (05:13)
[2019-12-31] MEDS: DILTIAZEM HCL 30 MG TABLET PO SCH ×2 (05:14→13:27)
[2019-12-31] MEDS: APIXABAN 5 MG TABLET PO SCH ×2 (09:35→18:43)
--- NOTE | 2019-12-31 13:11 | PDOC PROGRESS REPORT ---
Subjective Progress Note for:: 12/31/19 Subjective:: No chest pain or difficulty with breathing. Noted episodes of tachycardia on monitor. No abdominal pain, nausea, or vomiting. No fever or chills. There still is no bowel movement since admission. Reason For Visit: NEW ONSET ATRIL FIBRILLATION WITH RVR Physical Exam Vital Signs: Temp Pulse Resp BP Pulse Ox 97.3 F 121 H 16 137/88 H 93 12/31/19 10:00 12/31/19 07:00 12/31/19 03:55 12/31/19 03:55 12/31/19 03:55 Intake & Output 12/30/19 12/31/19 01/01/20 06:59 06:59 06:59 Intake Total 61 3280 Balance 61 3280 Weight 78.5 kg 72.9 kg Physical Exam: General appearance: PRESENT: no acute distress Head exam: PRESENT: atraumatic, normocephalic Eye exam: PRESENT: conjunctiva pink. ABSENT: pallor, sclera icterus Mouth exam: PRESENT: moist, tongue midline Neck exam: PRESENT: full ROM. Respiratory exam: PRESENT: clear to auscultation polo Cardiovascular exam: PRESENT: irregular rhythm, +S1, +S2. ABSENT: diastolic murmur, rubs, systolic murmur GI/Abdominal exam: PRESENT: normal bowel sounds, soft. ABSENT: distended, guarding, mass, organomegaly, rebound, tenderness Extremities exam: ABSENT: pedal edema Neurological exam: PRESENT: alert, awake, oriented to person, oriented to place, oriented to time, oriented to situation, CN II-XII grossly intact. ABSENT: motor sensory deficit Psychiatric exam: PRESENT: appropriate affect, normal mood. ABSENT: homicidal ideation, suicidal ideation Skin exam: PRESENT: dry, warm. ABSENT: cyanosis, rash Results Laboratory Results: 12/30/19 05:10 12/30/19 05:10 12/29/19 12/29/19 11:30 11:30 Troponin I < 0.012 NT-Pro-B Natriuret Pep 2180 H Assessment & Plan - Diagnosis (1) New onset atrial fibrillation Is this a current diagnosis for this admission?: Yes (2) Worm infestation Is this a current diagnosis for this admission?: Yes (3) HTN (hypertension) Qualifiers: Hypertension type: essential hypertension Qualified Code(s): I10 - Mckenzie al (primary) hypertension Is this a current diagnosis for this admission?: Yes (4) HLD (hyperlipidemia) Qualifiers: Hyperlipidemia type: unspecified Qualified Code(s): E78.5 - Hyperlipidemia, unspecified Is this a current diagnosis for this admission?: Yes (5) Fibromyalgia Is this a current diagnosis for this admission?: Yes (6) Anxiety Is this a current diagnosis for this admission?: Yes (7) Chronic pain syndrome Is this a current diagnosis for this admission?: Yes (8) Chronic prescription opiate use Is this a current diagnosis for this admission?: Yes - Time Time Spent with patient: 25-34 minutes Level of Care: IMCU Medications reviewed and adjusted accordingly: Yes Anticipated discharge: Home with Homehealth Anticipated DC Timeframe: within 72 hours - Inpatient Certification Based on my medical assessment, after consideration of the patient's comorbidities, presenting symptoms, or acuity I expect that the services needed warrant INPATIENT care.: Yes I certify that my determination is in accordance with my understanding of Medicare's requirements for reasonable and necessary INPATIENT services [42 CFR 412.3e].: Yes Medical Necessity: Significant Comorbidiites Make Outpatient Treatment Too Risky, Need Close Monitoring Due to Risk of Patient Decompensation, Need For IV Fluids, Need For Continuous Telemetry Monitoring, Risk of Complication if Not Cared For in Hospital, Risk of Diagnosis Which Will Require Inpatient Eval/Care/Monitoring Post Hospital Care: D/C [employer]er Documentation - Plan Summary Plan Summary: See attending physician orders for details about care plan.
[2019-12-31] MEDS: DILTIAZEM HCL 60 MG TABLET PO SCH ×2 (13:47→18:43)
[2019-12-31] MEDS: NORMAL SALINE 1000 ML 1,000 ML IV PRN (13:48)
[2019-12-31] MEDS ORDERED: BISACODYL 10 MG SUPP.RECT PR ONE (18:00)
[2019-12-31] MEDS: DOCUSATE SODIUM 100 MG CAPSULE PO SCH (22:39)
[2020-01-01] MEDS: DILTIAZEM HCL 60 MG TABLET PO SCH ×5 (00:05→23:30)
[2020-01-01] MEDS: PANTOPRAZOLE SODIUM 40 MG TABLET.DR PO SCH (06:12)
[2020-01-01] MEDS: ALPRAZOLAM 0.5 MG TABLET PO PRN ×2 (09:06→23:33)
[2020-01-01] MEDS: OXYCODONE HCL IR 5 MG TABLET PO PRN (09:07)
[2020-01-01] MEDS: APIXABAN 5 MG TABLET PO SCH ×2 (09:07→17:47)
--- NOTE | 2020-01-01 12:12 | PDOC PROGRESS REPORT ---
Subjective Progress Note for:: 01/01/20 Subjective:: No chest pain or difficulty with breathing. No abdominal pain, nausea, or vomiting. No fever or chills. Patient reported small amount bowel movement x 3 since lst evaluation. Monitor continue to show a.fib with RVR. Reason For Visit: NEW ONSET ATRIL FIBRILLATION WITH RVR Physical Exam Vital Signs: Temp Pulse Resp BP Pulse Ox 97.2 F 88 16 135/84 H 95 01/01/20 09:49 01/01/20 07:00 01/01/20 03:59 01/01/20 03:59 01/01/20 03:59 Intake & Output 12/31/19 01/01/20 01/02/20 06:59 06:59 06:59 Intake Total 3280 2983 Balance 3280 2983 Weight 72.9 kg 72.9 kg Physical Exam: General appearance: PRESENT: no acute distress Head exam: PRESENT: atraumatic, normocephalic Eye exam: PRESENT: conjunctiva pink. ABSENT: pallor, sclera icterus Mouth exam: PRESENT: moist, tongue midline Neck exam: PRESENT: full ROM. Respiratory exam: PRESENT: clear to auscultation polo Cardiovascular exam: PRESENT: irregular rhythm, +S1, +S2. ABSENT: diastolic murmur, rubs, systolic murmur GI/Abdominal exam: PRESENT: normal bowel sounds, soft. ABSENT: distended, guarding, mass, organomegaly, rebound, tenderness Extremities exam: ABSENT: pedal edema Neurological exam: PRESENT: alert, awake, oriented to person, oriented to place, oriented to time, oriented to situation, CN II-XII grossly intact. ABSENT: motor sensory deficit Psychiatric exam: PRESENT: appropriate affect, normal mood. ABSENT: homicidal ideation, suicidal ideation Skin exam: PRESENT: dry, warm. ABSENT: cyanosis, rash Results Laboratory Results: 12/30/19 05:10 12/30/19 05:10 12/30/19 12/31/19 05:10 19:25 Thyroxine (T4) 7.4 Stool for White Cells NO WBCs SEEN 12/29/19 12/29/19 11:30 11:30 Troponin I < 0.012 NT-Pro-B Natriuret Pep 2180 H Assessment & Plan - Diagnosis (1) New onset atrial fibrillation Is this a current diagnosis for this admission?: Yes (2) Worm infestation Is this a current diagnosis for this admission?: Yes (3) HTN (hypertension) Qualifiers: Hypertension type: essential hypertension Qualified Code(s): I10 - Essential (primary) hypertension Is this a current diagnosis for this admission?: Yes (4) HLD (hyperlipidemia) Qualifiers: Hyperlipidemia type: unspecified Qualified Code(s): E78.5 - Hyperlipidemia, unspecified Is this a current diagnosis for this admission?: Yes (5) Fibromyalgia Is this a current diagnosis for this admission?: Yes (6) Anxiety Is this a current diagnosis for this admission?: Yes (7) Chronic pain syndrome Is this a current diagnosis for this admission?: Yes (8) Chronic prescription opiate use Is this a current diagnosis for this admission?: Yes - Time Time Spent with patient: 25-34 minutes Level of Care: IMCU Medications reviewed and adjusted accordingly: Yes Anticipated discharge: Home Anticipated DC Timeframe: within 72 hours - Inpatient Certification Based on my medical assessment, after consideration of the patient's comorbidities, presenting symptoms, or acuity I expect that the services needed warrant INPATIENT care.: Yes I certify that my determination is in accordance with my understanding of Medicare's requirements for reasonable and necessary INPATIENT services [42 CFR 412.3e].: Yes Medical Necessity: Significant Comorbidiites Make Outpatient Treatment Too Risky, Need Close Monitoring Due to Risk of Patient Decompensation, Need For Continuous Telemetry Monitoring, Risk of Complication if Not Cared For in Hospital, Risk of Diagnosis Which Will Require Inpatient Eval/Care/Monitoring Post Hospital Care: D/C Blog Writer Documentation - Plan Summary Plan Summary: Continue Cardizem at 60 mg p.o q 6 hours. Start on Metoprolol 12.5 mg po bid. Start on Miralax 17 gm p.o daily. Continue all other current medication managem ent.
[2020-01-01] MEDS: NORMAL SALINE 1000 ML 1,000 ML IV PRN (13:34)
[2020-01-01] MEDS: METOPROLOL TARTRATE 25 MG TABLET PO SCH ×2 (13:34→21:43)
[2020-01-01] MEDS: POLYETHYLENE GLYCOL 3350 POWDER 17 GM/1 PACKET PO SCH (13:36)
[2020-01-01] MEDS: DOCUSATE SODIUM 100 MG CAPSULE PO SCH (21:43)
[2020-01-02] MEDS: DILTIAZEM HCL 60 MG TABLET PO SCH ×3 (06:14→17:51)
[2020-01-02] MEDS: PANTOPRAZOLE SODIUM 40 MG TABLET.DR PO SCH (06:14)
[2020-01-02] MEDS: NORMAL SALINE 1000 ML 1,000 ML IV PRN (10:04)
[2020-01-02] MEDS: APIXABAN 5 MG TABLET PO SCH ×2 (10:05→17:51)
[2020-01-02] MEDS: METOPROLOL TARTRATE 25 MG TABLET PO SCH ×2 (10:05→21:33)
[2020-01-02] MEDS: POLYETHYLENE GLYCOL 3350 POWDER 17 GM/1 PACKET PO SCH (10:05)
[2020-01-02] MEDS: OXYCODONE HCL IR 5 MG TABLET PO PRN (16:44)
--- NOTE | 2020-01-02 19:00 | PDOC PROGRESS REPORT ---
Subjective Progress Note for:: 01/02/20 Subjective:: No chest pain or difficulty with breathing. No fever or chills. No abdominal pain, nausea, or vomiting. 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 Reason For Visit: NEW ONSET ATRIL FIBRILLATION WITH RVR Physical Exam Vital Signs: Temp Pulse Resp BP Pulse Ox 97.6 F 108 H 18 140/97 H 97 01/02/20 08:02 01/02/20 08:02 01/02/20 08:02 01/02/20 08:02 01/02/20 08:02 Intake & Output 01/01/20 01/02/20 01/03/20 06:59 06:59 06:59 Intake Total 2983 2460 1000 Balance 2983 2460 1000 Weight 72.9 kg 73 kg Physical Exam: General appearance: PRESENT: no acute distress Head exam: PRESENT: atraumatic, normocephalic Eye exam: PRESENT: conjunctiva pink. ABSENT: pallor, sclera icterus Mouth exam: PRESENT: moist, tongue midline Neck exam: PRESENT: full ROM. Respiratory exam: PRESENT: clear to auscultation polo Cardiovascular exam: PRESENT: irregular rhythm, +S1, +S2. ABSENT: diastolic murmur, rubs, systolic murmur GI/Abdominal exam: PRESENT: normal bowel sounds, soft. ABSENT: distended, guarding, mass, organomegaly, rebound, tenderness Extremities exam: ABSENT: pedal edema Neurological exam: PRESENT: alert, awake, oriented to person, oriented to place, oriented to time, oriented to situation, CN II-XII grossly intact. ABSENT: motor sensory deficit Psychiatric exam: PRESENT: appropriate affect, normal mood. ABSENT: homicidal ideation, suicidal ideation Skin exam: PRESENT: dry, warm. ABSENT: cyanosis, rash Results Laboratory Results: 12/30/19 05:10 12/30/19 05:10 12/31/19 19:25 Stool - Stool - Final 12/29/19 12/29/19 11:30 11:30 Troponin I < 0.012 NT-Pro-B Natriuret Pep 2180 H Assessment & Plan - Diagnosis (1) New onset atrial fibrillation Is this a current diagnosis for this admission?: Yes (2) Worm infestation Is this a current diagnosis for this admission?: Yes (3) HTN (hypertension) Qualifiers: Hypertension type: essential hypertension Qualified Code(s): I10 - Essential (primary) hypertension Is this a current diagnosis for this admission?: Yes (4) HLD (hyperlipidemia) Qualifiers: Hyperlipidemia type: unspecified Qualified Code(s): E78.5 - Hyperlipidemia, unspecified Is this a current diagnosis for this admission?: Yes (5) Fibromyalgia Is this a current diagnosis for this admission?: Yes (6) Anxiety Is this a current diagnosis for this admission?: Yes (7) Chronic pain syndrome Is this a current diagnosis for this admission?: Yes (8) Chronic prescription opiate use Is this a current diagnosis for this admission?: Yes - Time Time Spent with patient: 25-34 minutes Level of Care: IMCU Medications reviewed and adjusted accordingly: Yes Anticipated discharge: Home Anticipated DC Timeframe: within 72 hours - Inpatient Certification Based on my medical assessment, after consideration of the patient's comorbidities, presenting symptoms, or acuity I expect that the services needed warrant INPATIENT care.: Yes I certify that my determination is in accordance with my understanding of Medicare's requirements for reasonable and necessary INPATIENT services [42 CFR 412.3e].: Yes Medical Necessity: Significant Comorbidiites Make Outpatient Treatment Too Risky, Need Close Monitoring Due to Risk of Patient Decompensation, Need For IV Fluids, Need For Continuous Telemetry Monitoring, Risk of Complication if Not Cared For in Hospital, Risk of Diagnosis Which Will Require Inpatient Eval/Care/Monitoring Post Hospital Care: D/C Right Of Way 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 Start on Cardizem CD 120 mg po bid. Continue all other current medication management. Discussed possible discharge in next 48 hours with patient if her condition continue to improve. Awaiting stool ova and parasite evaluation.
[2020-01-02] MEDS: DOCUSATE SODIUM 100 MG CAPSULE PO SCH (21:32)
[2020-01-02] MEDS: DILTIAZEM HCL 120 MG CAP.SR.24H PO SCH (21:33)
[2020-01-02] MEDS: ALPRAZOLAM 0.5 MG TABLET PO PRN (23:19)
[2020-01-03] MEDS: NORMAL SALINE 1000 ML 1,000 ML IV PRN ×2 (03:37→23:35)
[2020-01-03] MEDS: PANTOPRAZOLE SODIUM 40 MG TABLET.DR PO SCH (05:22)
[2020-01-03] MEDS: POLYETHYLENE GLYCOL 3350 POWDER 17 GM/1 PACKET PO SCH (09:59)
[2020-01-03] MEDS: DILTIAZEM HCL 120 MG CAP.SR.24H PO SCH ×2 (09:59→22:30)
[2020-01-03] MEDS: METOPROLOL TARTRATE 25 MG TABLET PO SCH ×2 (09:59→22:30)
[2020-01-03] MEDS: APIXABAN 5 MG TABLET PO SCH ×2 (09:59→17:44)
--- NOTE | 2020-01-03 19:03 | PDOC PROGRESS REPORT ---
Subjective Progress Note for:: 01/03/20 Subjective:: No chest pain or difficulty with breathing. 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 No fever or chills. No abdominal pain, nausea, or vomiting. Reason For Visit: NEW ONSET ATRIL FIBRILLATION WITH RVR Physical Exam Vital Signs: Temp Pulse Resp BP Pulse Ox 97.9 F 73 18 125/66 93 01/03/20 04:23 01/03/20 04:23 01/03/20 04:23 01/03/20 04:23 01/03/20 04:23 Intake & Output 01/02/20 01/03/20 01/04/20 06:59 06:59 06:59 Intake Total 2460 2718 Balance 2460 2718 Weight 73 kg 71.9 kg Physical Exam: General appearance: PRESENT: no acute distress Head exam: PRESENT: atraumatic, normocephalic Eye exam: PRESENT: conjunctiva pink. ABSENT: pallor, sclera icterus Mouth exam: PRESENT: moist, tongue midline Neck exam: PRESENT: full ROM. Respiratory exam: PRESENT: clear to auscultation polo Cardiovascular exam: PRESENT: irregular rhythm, +S1, +S2. ABSENT: diastolic murmur, rubs, systolic murmur GI/Abdominal exam: PRESENT: normal bowel sounds, soft. ABSENT: distended, guarding, mass, organomegaly, rebound, tenderness Extremities exam: ABSENT: pedal edema Neurological exam: PRESENT: alert, awake, oriented to person, oriented to place, oriented to time, oriented to situation, CN II-XII grossly intact. ABSENT: motor sensory deficit Psychiatric exam: PRESENT: appropriate affect, normal mood. ABSENT: homicidal ideation, suicidal ideation Skin exam: PRESENT: dry, warm. ABSENT: cyanosis, rash Results Laboratory Results: 12/30/19 05:10 12/30/19 05:10 12/31/19 19:25 Stool - Stool - Final 12/29/19 12/29/19 11:30 11:30 Troponin I < 0.012 NT-Pro-B Natriuret Pep 2180 H Assessment & Plan - Diagnosis (1) New onset atrial fibrillation Is this a current diagnosis for this admission?: Yes (2) Worm infestation Is this a current diagnosis for this admission?: Yes (3) HTN (hypertension) Qualifiers: Hypertension type: essential hypertension Qualified Code(s): I10 - Essential (primary) hypertension Is this a current diagnosis for this admission?: Yes (4) HLD (hyperlipidemia) Qualifiers: Hyperlipidemia type: unspecified Qualified Code(s): E78.5 - Hyperlipidemia, unspecified Is this a current diagnosis for this admission?: Yes (5) Fibromyalgia Is this a current diagnosis for this admission?: Yes (6) Anxiety Is this a current diagnosis for this admission?: Yes (7) Chronic pain syndrome Is this a current diagnosis for this admission?: Yes (8) Chronic prescription opiate use Is this a current diagnosis for this admission?: Yes - Time Time Spent with patient: 25-34 minutes Level of Care: IMCU Medications reviewed and adjusted accordingly: Yes Anticipated discharge: Home Anticipated DC Timeframe: within 24 hours - Inpatient Certification Based on my medical assessment, after consideration of the patient's comorbidities, presenting symptoms, or acuity I expect that the services needed warrant INPATIENT care.: Yes I certify that my determination is in accordance with my understanding of Medicare's requirements for reasonable and necessary INPATIENT services [42 CFR 412.3e].: Yes Medical Necessity: Significant Comorbidiites Make Outpatient Treatment Too Risky, Need Close Monitoring Due to Risk of Patient Decompensation, Need For IV Fluids, Need For Continuous Telemetry Monitoring, Risk of Complication if Not Cared For in Hospital, Risk of Diagnosis Which Will Require Inpatient Eval/Care/Monitoring Post 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 Possible discharge home was discussed with patient during this bedside visit.
[2020-01-03] MEDS: DOCUSATE SODIUM 100 MG CAPSULE PO SCH (22:30)
[2020-01-03] MEDS: ALPRAZOLAM 0.5 MG TABLET PO PRN (23:32)
[2020-01-04] MEDS: PANTOPRAZOLE SODIUM 40 MG TABLET.DR PO SCH (05:43)
[2020-01-04] MEDS: OXYCODONE HCL IR 5 MG TABLET PO PRN (05:48)
[2020-01-04] MEDS: DILTIAZEM HCL 120 MG CAP.SR.24H PO SCH (09:49)
[2020-01-04] MEDS: APIXABAN 5 MG TABLET PO SCH (09:49)
[2020-01-04] MEDS: METOPROLOL TARTRATE 25 MG TABLET PO SCH (09:50)
[2020-01-04] MEDS: POLYETHYLENE GLYCOL 3350 POWDER 17 GM/1 PACKET PO SCH (09:50)
[2020-01-04 17:07] VITALS: BP 117/87
--- NOTE | 2020-01-07 21:19 | PDOC DISCHARGE SUMMARY ---
Impression - Admit/DC Date/PCP Admission Date/Primary Care Provider: 12/29/19 13:10 RENÉ AZAR Discharge Date: 01/04/20 - Discharge Diagnosis (1) New onset atrial fibrillation Is this a current diagnosis for this admission?: Yes (2) Worm infestation Is this a current diagnosis for this admission?: Yes (3) HTN (hypertension) Is this a current diagnosis for this admission?: Yes (4) HLD (hyperlipidemia) Is this a current diagnosis for this admission?: Yes (5) Fibromyalgia Is this a current diagnosis for this admission?: Yes (6) Anxiety Is this a current diagnosis for this admission?: Yes (7) Chronic pain syndrome Is this a current diagnosis for this admission?: Yes (8) Chronic prescription opiate use Is this a current diagnosis for this admission?: Yes - Assessment Summary: Patient was admitted for new onset atrial fibrillation with rapid ventricular rate. She was management with rate control medication including IV Cardizem and eventually transition to oral route along with Metoprolol Tartrate. She was started on Eliqius anticoagulation therapy. Her hospitalization was further challenged by her perception of worm infestation which has been a concern from outpatient setting over the last couple of months. Her stool evaluation was reported negative for ova and parasite and nasal specimen as containing paper material instead of worm. She will be discharged home today and follow up in the office as directed upon discharge. - Additional Information Resuscitation Status: Full Code Discharge Diet: Cardiac Discharge Activity: Activity As Tolerated Referrals: RENÉ AZAR MD [Primary Care Provider] - 01/09/20 10:00 am Prescriptions: Diltiazem HCl [Cardizem Cd 120 mg Capsule] 120 mg PO Q12 #60 cap.sr.24h Docusate Sodium [Colace 100 mg Capsule] 200 mg PO QHS #60 capsule Apixaban [Eliquis 5 mg Tablet] 5 mg PO BID #60 tablet Metoprolol Tartrate [Lopressor 25 mg Tablet] 25 mg PO Q12 #60 tablet Home Medications: Alprazolam 1 mg PO TIDP PRN 12/29/19 Montelukast Sodium [Singulair 10 mg Tablet] 10 mg PO QHS 12/29/19 Oxycodone HCl [Oxy-Ir 5 mg Tablet] 5 mg PO Q6HP PRN 12/29/19 Oxycodone HCl [Oxy-Ir 5 mg Tablet] 10 mg PO Q6HP PRN 12/29/19 Oxycodone HCl [Oxycontin Sr 10 mg Tablet] 10 mg PO Q12HP PRN 12/29/19 Apixaban [Eliquis 5 mg Tablet] 5 mg PO BID #60 tablet 01/04/20 Diltiazem HCl [Cardizem Cd 120 mg Capsule] 120 mg PO Q12 #60 cap.sr.24h 01/04/20 Docusate Sodium [Colace 100 mg Capsule] 200 mg PO QHS #60 capsule 01/04/20 Metoprolol Tartrate [Lopressor 25 mg Tablet] 25 mg PO Q12 #60 tablet 01/04/20 History of Present Illiness History of Present Illness: SRAVAN CHONG is a 74 year old female patient known to my practice who presented to the ED second time in last 48 hours with complain about worm in her stool and coming out of her nose. She was seen in the office for similar complain recently and her workup is pending results from [facility] laboratory. She reported persist of her observation and based on the suggestion of her pharmacist reported to the ED for further evaluation. She denied any recent travel or intimate contact with individual that may be infested with worm. She admitted to keeping two dogs at home as pets, walk barefoot at home and in her yard. She denied consumption of unusual meat or food products. In the course of her assessment, she reported intermittent shortness of breath since onset of her worm infestation observation in November,. She was found to be in atrial fibrillation with rapid ventricular response rate. She denied any associated chest pain or dizziness. She admitted to intermittent palpitation. She denied any similar problem in the past or any history of thyroid problem. Her morbidities are as listed below. She was advised hospitalization for further evaluation and management. Hospital Course Hospital Course: Patient was admitted for new onset atrial fibrillation with rapid ventricular rate. She was management with rate control medication including IV Cardizem and eventually transition to oral route along with Metoprolol Tartrate. She was started on Eliqius anticoagulation therapy. Her hospitalization was further challenged by her perception of worm infestation which has been a concern from outpatient setting over the last couple of months. Her stool evaluation was reported negative for ova and parasite and nasal specimen as containing paper material instead of worm. She will be discharged home today and follow up in the office as directed upon discharge. Physical Exam Vital Signs: Temp Pulse Resp BP Pulse Ox 98.2 F 104 H 17 120/67 100 01/04/20 10:00 01/04/20 08:44 01/04/20 08:44 01/04/20 08:44 01/04/20 08:44 Intake & Output 01/03/20 01/04/20 01/05/20 06:59 06:59 06:59 Intake Total 2718 2378 Balance 2718 2378 Weight 71.9 kg 71.2 kg General appearance: PRESENT: no acute distress Head exam: PRESENT: atraumatic, normocephalic Eye exam: PRESENT: conjunctiva pink. ABSENT: pallor, sclera icterus Mouth exam: PRESENT: moist, tongue midline Neck exam: PRESENT: full ROM. Respiratory exam: PRESENT: clear to auscultation polo Cardiovascular exam: PRESENT: irregular rhythm, +S1, +S2. ABSENT: diastolic murmur, rubs, systolic murmur GI/Abdominal exam: PRESENT: normal bowel sounds, soft. ABSENT: distended, guarding, mass, organomegaly, rebound, tenderness Extremities exam: ABSENT: pedal edema Neurological exam: PRESENT: alert, awake, oriented to person, oriented to place, oriented to time, oriented to situation, CN II-XII grossly intact. ABSENT: motor sensory deficit Psychiatric exam: PRESENT: appropriate affect, normal mood. ABSENT: homicidal ideation, suicidal ideation Skin exam: PRESENT: dry, warm. ABSENT: cyanosis, rash Results Laboratory Results: WBC 6.9 10^3/uL (4.0-10.5) 12/30/19 05:10 RBC 4.06 10^6/uL (3.72-5.28) 12/30/19 05:10 Hgb 12.0 g/dL (12.0-15.5) 12/30/19 05:10 Hct 35.7 % (36.0-47.0) L 12/30/19 05:10 MCV 88 fl (80-97) 12/30/19 05:10 MCH 29.7 pg (27.0-33.4) 12/30/19 05:10 MCHC 33.7 g/dL (32.0-36.0) 12/30/19 05:10 RDW 15.8 % (11.5-14.0) H 12/30/19 05:10 Plt Count 141 10^3/uL (150-450) L 12/30/19 05:10 Lymph % (Auto) 33.2 % (13-45) 12/30/19 05:10 [place] % (Auto) 8.4 % (3-13) 12/30/19 05:10 Eos % (Auto) 3.1 % (0-6) 12/30/19 05:10 Baso % (Auto) 0.4 % (0-2) 12/30/19 05:10 Absolute Neuts (auto) 3.8 10^3/uL (1.7-8.2) 12/30/19 05:10 Absolute Lymphs (auto) 2.3 10^3/uL (0.5-4.7) 12/30/19 05:10 Absolute Monos (auto) 0.6 10^3/uL (0.1-1.4) 12/30/19 05:10 Absolute Eos (auto) 0.2 10^3/uL (0.0-0.6) 12/30/19 05:10 Absolute Basos (auto) 0.0 10^3/uL (0.0-0.2) 12/30/19 05:10 Seg Neutrophils % 54.9 % (42-78) 12/30/19 05:10 PT 12.5 SEC (11.4-15.4) 12/29/19 11:30 INR 0.91 12/29/19 11:30 APTT 28.9 SEC (23.5-35.8) 12/29/19 11:30 Sodium 142.8 mmol/L (137-145) 12/30/19 05:10 Potassium 3.8 mmol/L (3.6-5.0) 12/30/19 05:10 Chloride 106 mmol/L (98-107) 12/30/19 05:10 Carbon Dioxide 30 mmol/L (22-30) 12/30/19 05:10 Anion Gap 7 (5-19) 12/30/19 05:10 BUN 15 mg/dL (7-20) 12/30/19 05:10 Creatinine 0.86 mg/dL (0.52-1.25) 12/30/19 05:10 Est GFR ( Amer) > 60 (>60) 12/30/19 05:10 Est GFR (MDRD) Non-Af > 60 (>60) 12/30/19 05:10 Glucose 103 mg/dL (75-110) 12/30/19 05:10 Calcium 8.4 mg/dL (8.4-10.2) 12/30/19 05:10 Magnesium 2.4 mg/dL (1.6-2.3) H 12/29/19 11:30 Total Bilirubin 0.7 mg/dL (0.2-1.3) 12/30/19 05:10 Direct Bilirubin 0.3 mg/dL (0.0-0.4) 12/30/19 05:10 Neonat Total Bilirubin Not Reportable 12/30/19 05:10 Neonat Direct Bilirubin Not Reportable 12/30/19 05:10 Neonat Indirect Bili Not Reportable 12/30/19 05:10 AST 25 U/L (14-36) 12/30/19 05:10 ALT 37 U/L (<35) H 12/30/19 05:10 Alkaline Phosphatase 51 U/L (38-126) 12/30/19 05:10 Troponin I < 0.012 ng/mL 12/29/19 11:30 NT-Pro-B Natriuret Pep 2180 pg/mL (<125) H 12/29/19 11:30 Total Protein 5.8 g/dL (6.3-8.2) L 12/30/19 05:10 Albumin 3.4 g/dL (3.5-5.0) L 12/30/19 05:10 TSH 0.28 uIU/mL (0.47-4.68) L 12/29/19 11:30 Free T4 1.64 ng/dL (0.78-2.19) 12/29/19 11:30 Thyroxine (T4) 7.4 ug/dL (4.5-12.0) 12/30/19 05:10 Free T3 pg/mL 3.46 pg/mL (2.77-5.27) 12/29/19 11:30 Stool for White Cells NO WBCs SEEN 12/31/19 19:25 Thyroid Peroxidase Ab <9 IU/mL (0-34) 12/30/19 05:10 12/29/19 12/29/19 11:30 11:30 Troponin I < 0.012 NT-Pro-B Natriuret Pep 2180 H Plan Health Concerns: Medication compliance and increase service utilization due to perception of worm infestation. Plan of Treatment: Close outpatient follow up management and referral to infectious disease specialist if there is no resolution to her worm infestation perception. Goals: Reduce readmission risk and unnecessary service over utilization. Time Spent: Greater than 30 Minutes - I had extensive discussion with patient regarding atrial fibrillation self management regarding medication administration and monitoring for any abnormal bleeding. We will look further into her worm infestation issue on outpatient follow up. Stroke Is this a Stroke Patient?: No Acute Heart Failure Is this a Heart Failure Patient?: No
== END 2020-01-04 17:55 | disposition home or self-care (01) | DRG 310 ==
LOC: ER 08:42 → EH 13:10 → 3S 14:55
PROVIDERS: ADMIT Internal Medicine Geriatric Medicine; ATTEND Internal Medicine Geriatric Medicine
DX: I48.91 Unspecified atrial fibrillation (principal); I10 Essential (primary) hypertension; E78.5 Hyperlipidemia, unspecified; F41.9 Anxiety disorder, unspecified; G89.4 Chronic pain syndrome; Z87.891 Personal history of nicotine dependence; Z88.5 Allergy status to narcotic agent; M79.7 Fibromyalgia; Z79.891 Long term (current) use of opiate analgesic; B83.9 Helminthiasis, unspecified
CPT/HCPCS: 36415; 71045; 80053; 81001; 83735; 83880; 84436; 84439; 84443; 84481; 84484; 85025; 85610; 85730; 86376; 87015; 87045; 87177; 87205; 87207; 88300; 89055; 93005; 93010; 96365; 96366; 96375; 99284; 99285; J3490; J7030